=== PATIENT | female | born 1965 ===

== ENCOUNTER 2023-04-13 13:07 | Outpatient (REF) | payer SELFPAY ==
[2023-04-13 15:12] LABS: ALT 26 U/L (14-59); AST 23 U/L (15-37); Albumin 3.5 g/dL (3.4-5.0); Alkaline Phosphatase 83 U/L (46-116); Anion Gap 7.7 mmol/L (3-11); BUN 11 mg/dL (7-18); Bilirubin, Total 0.4 mg/dL (0.2-1.0); CO2 30.3 mmol/L (21.0-32.0); CREATININE 0.9 mg/dL (0.55-1.02); Calcium 9.2 mg/dL (8.5-10.1); Calculated LDL 135 mg/dL (<100); Chloride 103 mmol/L (98-107); Cholesterol 205 mg/dL (<200); Glucose 114 mg/dL (74-106); HDL Cholesterol 43 mg/dL (40-60); Potassium 4.6 mmol/L (3.5-5.1); Sodium 141 mmol/L (136-145); TSH (W/Ref FT4) 2.19 uIU/mL (0.36-3.74); Total Protein 7.2 g/dL (6.4-8.2); Triglyceride 138 mg/dL (<150)
== END 2023-04-13 13:08 | disposition home or self-care (01) ==
LOC: NCHCN 13:07
PROVIDERS: PCP Nurse Practitioner Family; Visit Provider Family Medicine
DX: R00.0 Tachycardia, unspecified (principal); E66.9 Obesity, unspecified; Z13.220 Encounter for screening for lipoid disorders
CPT/HCPCS: 80053; 80061; 84443